=== PATIENT | male | born 1930 | race Caucasian/White ===

== ENCOUNTER 2016-08-27 15:02 | Inpatient (IN) | payer MEDICARE, BC ==
[~2016-08-27] VITALS: Ht 167.6 cm; Wt 59.7 kg
[2016-08-27] MEDS ORDERED: MONT10TA22 PO (15:46)
[2016-08-27] MEDS ORDERED: MAGN400O6 PO (15:46)
[2016-08-27] MEDS ORDERED: QUET25TA PO (15:46)
[2016-08-27] MEDS ORDERED: GUAI120S17 PO (15:46)
[2016-08-27] MEDS ORDERED: FLUT9.9S EA NOSTRIL (15:46)
[2016-08-27] MEDS ORDERED: OLOP5DRO EACHEYE (15:46)
[2016-08-27] MEDS ORDERED: TRAM50TA2 PO (15:46)
[2016-08-27] MEDS ORDERED: HYDR-4077 PO (15:46)
[2016-08-27] MEDS ORDERED: LATA2.5D7 EACHEYE (15:46)
[2016-08-27] MEDS ORDERED: BRIM5DRO EACHEYE (15:46)
[2016-08-27] MEDS ORDERED: POLY17PO4 PO (15:46)
[2016-08-27] MEDS ORDERED: METH5TAB6 PO (15:46)
[2016-08-27] MEDS ORDERED: BACI1CAP PO (15:46)
[2016-08-27] MEDS ORDERED: BENZ-13 PO (15:46)
[2016-08-27] MEDS ORDERED: LOSA25TA13 PO (15:46)
[2016-08-27] MEDS ORDERED: ATOR20TA PO (15:46)
[2016-08-27] MEDS ORDERED: FERR325T28 PO (15:46)
[2016-08-27] MEDS ORDERED: APIX5TAB PO (15:46)
[2016-08-27] MEDS ORDERED: TRIA15CR2 TP (15:46)
[2016-08-27] MEDS ORDERED: FURO-151 PO (15:46)
[2016-08-27] MEDS ORDERED: DOCU-270 PO (15:46)
[2016-08-27] MEDS ORDERED: LIDO30AD10 TD (15:46)
[2016-08-27] MEDS ORDERED: GABA-534 PO ×2 (15:46)
[2016-08-27] MEDS ORDERED: CARB28DR EACHEYE (15:46)
[2016-08-27] MEDS ORDERED: QUET50TA PO (15:46)
[2016-08-27] MEDS ORDERED: FAMO-132 PO (15:46)
[2016-08-27] MEDS ORDERED: ACET-2154 PO (15:46)
[2016-08-27] MEDS ORDERED: MULT-981 PO (15:46)
[2016-08-27] MEDS ORDERED: ALBU8.5H8 INH ×2 (15:46)
[2016-08-27] MEDS ORDERED: OMEG1CAP74 PO (15:46)
[2016-08-27] MEDS ORDERED: AMLO5TAB2 PO (15:46)
[2016-08-27] MEDS ORDERED: METH1TAB29 PO (15:46)
[2016-08-27] MEDS ORDERED: CRAN500C5 PO (15:46)
[2016-08-27] MEDS ORDERED: MELO-105 PO (15:46)
[2016-08-27] MEDS ORDERED: CORTISONE TOP (15:49)
[2016-08-27 15:56] LABS: BASOPHILS # (AUTO) 0.1 K/uL (0.0-8.0); BASOPHILS % (AUTO) 0.7 % (0.0-2.0); EOSINOPHILS # (AUTO) 0.5 K/uL (0.0-0.7); EOSINOPHILS % (AUTO) 6.4 % (0.0-7.0); HEMOGLOBIN 12.6 G/DL (14.0-18.0); LYMPHOCYTES # (AUTO) 1.3 K/UL (0.8-4.8); LYMPHOCYTES % (AUTO) 16.7 % (20.5-51.5); MEAN CORPUSCULAR HEMOGLOBIN 25.8 UUG (27.0-31.0); MEAN CORPUSCULAR HGB CONC 32 g/dL (32.0-37.0); MONOCYTES # (AUTO) 0.9 K/UL (0.1-1.30); MONOCYTES % (AUTO) 11.7 % (0.0-11.0); NEUTROPHILS # (AUTO) 5.1 K/UL (1.8-8.9); NEUTROPHILS % (AUTO) 64.5 % (38.5-71.5); PLATELET COUNT (AUTO) 321 K/UL (150-450); RED BLOOD CELL COUNT(AUTO) 4.87 MIL/UL (4.7-6.1); WHITE BLOOD COUNT (AUTO) 7.9 K/UL (4.0-11.2)
[2016-08-27 16:04] LABS: CARBON DIOXIDE 26 mmol/L (21-32); CHLORIDE 105 mmol/L (98-107); CREATININE 1.2 mg/dL (0.6-1.3); GLUCOSE 102 mg/dL (74-106); POTASSIUM 4.3 mmol/L (3.5-5.1); UREA NITROGEN, BLOOD 26 mg/dL (7-18)
[2016-08-27 16:10] LABS: ALANINE AMINOTRANSFERASE 15 U/L (16-63); ALKALINE PHOSPHATASE 126 U/L (50-136); ASPARTATE AMINOTRANSFERASE 13 U/L (15-37); BILIRUBIN,DIRECT 0.1 mg/dL (0.0-0.2); BILIRUBIN,TOTAL 0.4 mg/dL (0.2-1.0); TOTAL PROTEIN, SERUM 6.8 g/dL (6.4-8.2)
[2016-08-27 16:18] LABS: ETHANOL < 3 MG/DL (0-0)
--- NOTE | 2016-08-27 16:24 | NUR ---
PT IS IN ROOM #2A. DR GORDON EVALUATED THE PT.
[2016-08-27 16:32] LABS: THYROID STIMULATING HORMONE 4.547 mIU/mL (0.358-3.740)
[2016-08-27 17:20] LABS: *BILIRUBIN,URIN NEGATIVE (NEGATIVE); *BLOOD, URINE NEGATIVE (NEGATIVE); *COLOR,URINE YELLOW (YELLOW); *KETONES,URINE NEGATIVE (NEGATIVE); *PROTEIN,URINE NEGATIVE (NEGATIVE); *UROBILINOGEN,URINE 0.2 E.U./dl (NORMAL); LEUKOCYTE ESTERASE ,URINE TRACE (NEGATIVE); NITRITE, URINE NEGATIVE (NEGATIVE); UGLUCOSE NEGATIVE (NEGATIVE)
[2016-08-27 17:28] LABS: *AMPHETAMINE, URINE NEGATIVE (NEGATIVE); *BARBITURATE, URINE NEGATIVE (NEGATIVE); *CANNABINOID, URINE NEGATIVE (NEGATIVE); *COCCAINE, URINE NEGATIVE (NEGATIVE); *OPIATE, URINE NEGATIVE (NEGATIVE); *PHENCYCLIDINE SCREEN,URINE NEGATIVE (NEGATIVE)
[2016-08-27 17:38] LABS: *CLARITY,URINE SLIGHTLY HAZY (CLEAR)
[2016-08-27 17:41] LABS: BACTERIA,URINE MODERATE /HPF (NONE SEEN); MUCUS,URINE FEW /LPF (0-FEW)
[2016-08-27] MEDS ORDERED: diphenhydrAMINE 50 MG/1 ML VIAL IV ONE (18:45)
--- NOTE | 2016-08-27 18:48 | NUR ---
SONG RUIZ EVALUATING THE PT. RELATIVES AT THE BEDSIDE.
--- NOTE | 2016-08-27 19:00 | NUR ---
REPORT WAS GIVEN TO SOLE LEATHER CUTTING MACHINE OPERATORCOMMUNICATIONS SYSTEMS ENGINEER.
--- NOTE | 2016-08-27 19:21 | NUR ---
Received report from YOMAIRA Tate. Assumed care of pt at this time. Pt resting in position of comfort for self. Resp even and unlabored. No obvious signs of distress. Family at bedside, admission pending
[2016-08-27] MEDS ORDERED: diphenhydrAMINE 50 MG/1 ML VIAL ONE (19:32)
[2016-08-27] MEDS ORDERED: MAG HYDROX/AL HYDROX/SIMETH 30 ML LIQUID UDC PO PRN (20:45)
[2016-08-27] MEDS ORDERED: MAGNESIUM HYDROXIDE 30 ML LIQUID UDC PO PRN (20:45)
--- NOTE | 2016-08-27 20:45 | NUR ---
Report called to floor. Preparing to transfer pt to the floor. Family remains at bedside.,
[2016-08-27 21:00] VITALS: BP 129/55
--- NOTE | 2016-08-27 21:00 | NUR ---
Admitted this 86 y/o male patient via gurney, awake alert to himself, no SOB denies chest pain. Vital signs are stable. Dx. Psychosis & Dementia. Initial assessment done, generalized body rash noted. Family in room providing patient's medical history. Per family patient had Scabies a week ago & was treated 3x. Placed on contact isolation w/ 1:1 sitter for patient's safety. Will continue to monitor.
--- NOTE | 2016-08-27 21:45 | NUR ---
Paged Dr. Rocha for admit orders.
[2016-08-27] MEDS ORDERED: BENZONATATE 100 MG CAPSULE PO PRN (22:00)
[2016-08-27] MEDS ORDERED: ALBUTEROL SULFATE 8 GM HFA.AER.AD INH PRN (22:00)
[2016-08-27] MEDS ORDERED: MELOXICAM 7.5 MG TABLET PO PRN (22:00)
[2016-08-27 22:19] LABS: IRON, SERUM 36 ug/dL (50-175)
--- NOTE | 2016-08-28 06:55 | NUR ---
PT IN BED, SLEEPING WELL. RESP IS EVEN AND UNLABORED. NO ACUTE DISTRESS. PT ON 1:1 SITTER. PT REMAINS ON CONTACT ISOLATION FOR POSSIBLE SCABIES.
[2016-08-28] MEDS: AMLODIPINE 5 MG TABLET PO SCH (08:17)
[2016-08-28] MEDS: LOSARTAN POTASSIUM 25 MG TABLET PO SCH (08:17)
[2016-08-28] MEDS: FUROSEMIDE 40 MG TABLET PO SCH (08:17)
[2016-08-28] MEDS ORDERED: ALBUTEROL SULFATE 2.5 MG/3 ML NEBU NEB PRN (08:30)
[2016-08-28] MEDS ORDERED: [UNRECOGNIZED DRUG - OTHER] PO SCH (09:00)
[2016-08-28] MEDS ORDERED: Medication Not On Formulary EA (Omega-3 Fatty Acids/Fish Oil (Fish Oil 1,000 Mg Softgel) PO SCH (09:00)
[2016-08-28] MEDS ORDERED: TRIAMCINOLONE ACET 0.5% CREAM 15 GM TUBE TP SCH (09:00)
[2016-08-28] MEDS ORDERED: BRIMONIDINE-P 0.15% OPHT DROP 5 ML BOTTLE EACHEYE SCH (09:00)
[2016-08-28] MEDS ORDERED: hydrALAZINE HCL 50 MG TABLET PO SCH (09:00)
[2016-08-28] MEDS ORDERED: BACILLUS COAGULANS PO SCH (09:00)
[2016-08-28] MEDS ORDERED: MULTIVITS MINERALS PO SCH (09:00)
[2016-08-28] MEDS ORDERED: [UNRECOGNIZED DRUG - OTHER] PO SCH (09:00)
[2016-08-28] MEDS ORDERED: FAMOTIDINE 20 MG TABLET PO SCH (09:00)
[2016-08-28] MEDS ORDERED: LYCOPENE PO SCH (09:00)
[2016-08-28] MEDS ORDERED: APIXABAN 5 MG TABLET PO ONE (09:00)
[2016-08-28] MEDS ORDERED: INULIN PO SCH (09:00)
[2016-08-28] MEDS: BRIMONIDINE 0.2% OPHT DROP 10 ML BOTTLE EACHEYE SCH ×3 (09:33→18:22)
[2016-08-28] MEDS: MIRALAX 17 GM POWD.PACK PO SCH (09:33)
[2016-08-28] MEDS: MULTIVIT, IRON, MIN NO. 8, FA TABLET PO SCH (09:34)
[2016-08-28] MEDS: FERROUS SULFATE 325 MG TABEC PO SCH (09:34)
[2016-08-28] MEDS: GABAPENTIN 300 MG CAPSULE PO SCH ×3 (09:34→17:53)
[2016-08-28] MEDS: DOCUSATE SODIUM 100 MG CAPSULE PO SCH (09:34)
[2016-08-28] MEDS: Z GUARD REMEDY PASTE 57 GM TUBE TOP SCH ×2 (09:34→21:08)
[2016-08-28] MEDS: LACTOBACILLUS RHAMNOSUS GG 1 EACH CAPSULE PO SCH ×2 (09:34→21:07)
[2016-08-28] MEDS: METHIMAZOLE 5 MG TABLET PO SCH (09:34)
[2016-08-28] MEDS: OMEGA-3 FATTY ACIDS/FISH OIL CAPSULE PO SCH (09:34)
[2016-08-28] MEDS: FAMOTIDINE 20 MG TABLET PO SCH (09:34)
[2016-08-28] MEDS ORDERED: CEPHALEXIN MONOHYDRATE 500 MG CAPSULE PO SCH (10:30)
[2016-08-28] MEDS: CEPHALEXIN MONOHYDRATE 500 MG CAPSULE PO SCH ×2 (11:14→21:06)
[2016-08-28 12:00] VITALS: BP 132/67
--- NOTE | 2016-08-28 12:33 | NUR ---
NEW ORDER OF SKIN SCRAPING, CONTACTED SHAYY. PER TRAY "SHAMIR THE NURSE WILL BE ABLE TO DO IT, CALLED OVER EXTENSION. NO NV IS ABLE TO LEAVE, LEFT A NOTE TO CONTACT THE NURSE IN REGARDS OF THE NEW ORDER FROM PROVIDER OF SKIN SCRAPING".
--- NOTE | 2016-08-28 14:01 | NUR ---
Initial discharge instructions: The patient resides at [facility] , contact: Delisa Palmer . SW will contact Delisa to obtain the address and confirm that they will be accepting the patient back upon DC. DWIGHT spoke with the patient's daughter and son in law Kim and Robe who both stated that they would like for the patient to return to the facility upon DC. DWIGHT will speak with the patient, family, and MD regarding most appropriate discharge plan. SS will form a safe and proper discharge.
[2016-08-28] MEDS: QUETIAPINE FUMARATE 25 MG TABLET PO SCH ×3 (14:28→21:07)
--- NOTE | 2016-08-28 14:36 | NUR ---
WOUND CARE CONSULT: PT PRESENTS WITH ITCHING AND RASH TO BODY WITH SOME DRY ABRASIONS. BLANCHING REDNESS NOTED TO SACRUM. VEL SCORE CURRENTLY 16. ALL SKIN PROTECTION MEASURES IN PLACE AND DISCUSSED WITH NURSING STAFF. DEFER TO MD FOR RASH/SKIN CONDITION. WILL SEE PRN. MD IN AGREEMENT WITH PLAN OF CARE. Addendum: 08/28/16 at 1438 by ALE HAWKINS RN Amended: Links added.
[2016-08-28 15:57] VITALS: BP 147/73
[2016-08-28] MEDS: TRIAMCINOLONE ACET 0.1% CREAM 15 GM TUBE TOP SCH ×2 (17:00→17:59)
[2016-08-28] MEDS: APIXABAN 5 MG TABLET PO SCH (17:53)
[2016-08-28] MEDS: LATANOPROST OPHT DROP 2.5 ML BOTTLE EACHEYE SCH ×2 (17:54→18:23)
--- NOTE | 2016-08-28 19:31 | NUR ---
NO CHANGES NOTED. ALL SAFETY NEEDS ARE MET.
[2016-08-28] MEDS: ACETAMINOPHEN 325 MG TABLET PO PRN (21:07)
[2016-08-28] MEDS: ATORVASTATIN 20 MG TABLET PO SCH (21:07)
[2016-08-28] MEDS: MONTELUKAST SODIUM 10 MG TABLET PO SCH (21:07)
[2016-08-28 22:31] VITALS: BP 140/57
--- NOTE | 2016-08-29 07:00 | NUR ---
No significant change, patient rested well slept 8 hrs. Contact isolation maintained. 1:1 sitter in room.
--- NOTE | 2016-08-29 07:30 | NUR ---
RECEIVED REPORT FROM PUMPING PLANT OPERATOR, PATIENT IN BED SLEEPING, SIDE RAILS UP X2, BED IN LOW POSITION, NO EVIDENCE OF DISTRESS NOTED.
[2016-08-29 08:31] LABS: THYROID STIMULATING HORMONE 5.424 mIU/mL (0.358-3.740)
[2016-08-29] MEDS: BRIMONIDINE 0.2% OPHT DROP 10 ML BOTTLE EACHEYE SCH ×2 (09:37→17:49)
[2016-08-29] MEDS: DOCUSATE SODIUM 100 MG CAPSULE PO SCH (09:38)
[2016-08-29] MEDS: LOSARTAN POTASSIUM 25 MG TABLET PO SCH (09:38)
[2016-08-29] MEDS: FUROSEMIDE 40 MG TABLET PO SCH (09:39)
[2016-08-29] MEDS: OMEGA-3 FATTY ACIDS/FISH OIL CAPSULE PO SCH (09:39)
[2016-08-29] MEDS: FERROUS SULFATE 325 MG TABEC PO SCH (09:39)
[2016-08-29] MEDS: APIXABAN 5 MG TABLET PO SCH ×2 (09:39→17:50)
[2016-08-29] MEDS: MIRALAX 17 GM POWD.PACK PO SCH (09:39)
[2016-08-29] MEDS: CEPHALEXIN MONOHYDRATE 500 MG CAPSULE PO SCH ×2 (09:39→20:28)
[2016-08-29] MEDS: LACTOBACILLUS RHAMNOSUS GG 1 EACH CAPSULE PO SCH ×2 (09:39→20:28)
[2016-08-29] MEDS: GABAPENTIN 300 MG CAPSULE PO SCH ×3 (09:40→17:49)
[2016-08-29] MEDS: AMLODIPINE 5 MG TABLET PO SCH (09:40)
[2016-08-29] MEDS: QUETIAPINE FUMARATE 25 MG TABLET PO SCH ×4 (09:40→20:28)
[2016-08-29] MEDS: MULTIVIT, IRON, MIN NO. 8, FA TABLET PO SCH (09:40)
[2016-08-29] MEDS: TRIAMCINOLONE ACET 0.1% CREAM 15 GM TUBE TOP SCH ×2 (09:40→17:49)
[2016-08-29] MEDS: LIDOCAINE 5% PATCH TD SCH (09:41)
[2016-08-29] MEDS: Z GUARD REMEDY PASTE 57 GM TUBE TOP SCH ×2 (09:41→20:28)
[2016-08-29] MEDS: METHIMAZOLE 5 MG TABLET PO SCH (09:43)
[2016-08-29 10:15] VITALS: BP 131/73
[2016-08-29 12:00] VITALS: BP 131/66
[2016-08-29 16:00] VITALS: BP 128/51
[2016-08-29] MEDS: LATANOPROST OPHT DROP 2.5 ML BOTTLE EACHEYE SCH (17:49)
--- NOTE | 2016-08-29 18:24 | NUR ---
PATIENT HAS BEEN MOSTLY COOPERATIVE THROUGHOUT THE DAY. PATIENT IS BITING TOWELS, NIGHT GOWN, AND BLOOD PRESSURE CUFF. PATIENT WAS VISITED BY FAMILY MEMBERS, AND DID NOT EAT MUCH LUNCH OR DINNER. PATIENT IS IN BED, SIDE RAILS UP X2, AND SITTER AT BEDSIDE. PATIENT IS ON ISOLATION FOR MRSA.
--- NOTE | 2016-08-29 20:00 | NUR ---
RECEIVED PATIENT ASLEEP. SITTER AT BEDSIDE. VSS. BED ALARM ON. ALL NEEDS ATTENDED. WILL CONTINUE TO MONITOR.
[2016-08-29] MEDS: ATORVASTATIN 20 MG TABLET PO SCH (20:28)
[2016-08-29] MEDS: MUPIROCIN 2% OINT 22 GM TUBE NS SCH (20:28)
[2016-08-29] MEDS: MONTELUKAST SODIUM 10 MG TABLET PO SCH (20:28)
--- NOTE | 2016-08-30 06:40 | NUR ---
PATIENT ASLEEP IN BED. SITTER AT BEDSIDE. SLEPT 6 HOURS AND 30 MINUTES. BED ALARM ON. CALL LIGHT IN REACH. ALL NEEDS ATTENDED.WILL CONTINUE TO MONITOR.
--- NOTE | 2016-08-30 07:20 | NUR ---
Received report from night shift supervisor nurse, patient in bed sleeping, no evidence of distress, side rails up x2, bed in low position.
[2016-08-30 07:38] LABS: *OCCULT BLOOD STOOL NEGATIVE (NEGATIVE)
[2016-08-30] MEDS: BRIMONIDINE 0.2% OPHT DROP 10 ML BOTTLE EACHEYE SCH ×2 (09:04→17:48)
[2016-08-30] MEDS: FERROUS SULFATE 325 MG TABEC PO SCH (09:05)
[2016-08-30] MEDS: OMEGA-3 FATTY ACIDS/FISH OIL CAPSULE PO SCH (09:05)
[2016-08-30] MEDS: FUROSEMIDE 40 MG TABLET PO SCH (09:05)
[2016-08-30] MEDS: MULTIVIT, IRON, MIN NO. 8, FA TABLET PO SCH (09:06)
[2016-08-30] MEDS: GABAPENTIN 300 MG CAPSULE PO SCH ×3 (09:06→17:45)
[2016-08-30] MEDS: DOCUSATE SODIUM 100 MG CAPSULE PO SCH (09:06)
[2016-08-30] MEDS: AMLODIPINE 5 MG TABLET PO SCH (09:06)
[2016-08-30] MEDS: CEPHALEXIN MONOHYDRATE 500 MG CAPSULE PO SCH ×2 (09:07→20:52)
[2016-08-30] MEDS: MIRALAX 17 GM POWD.PACK PO SCH (09:07)
[2016-08-30] MEDS: LOSARTAN POTASSIUM 25 MG TABLET PO SCH (09:07)
[2016-08-30] MEDS: QUETIAPINE FUMARATE 25 MG TABLET PO SCH ×4 (09:08→20:52)
[2016-08-30] MEDS: APIXABAN 5 MG TABLET PO SCH ×2 (09:08→17:45)
[2016-08-30] MEDS: FAMOTIDINE 20 MG TABLET PO SCH (09:08)
[2016-08-30] MEDS: MUPIROCIN 2% OINT 22 GM TUBE NS SCH ×2 (09:09→21:33)
[2016-08-30] MEDS: LACTOBACILLUS RHAMNOSUS GG 1 EACH CAPSULE PO SCH ×2 (09:09→20:52)
[2016-08-30] MEDS: LIDOCAINE 5% PATCH TD SCH (09:09)
[2016-08-30] MEDS: METHIMAZOLE 5 MG TABLET PO SCH (09:09)
[2016-08-30] MEDS: Z GUARD REMEDY PASTE 57 GM TUBE TOP SCH ×2 (09:10→20:51)
[2016-08-30] MEDS: TRIAMCINOLONE ACET 0.1% CREAM 15 GM TUBE TOP SCH ×2 (09:10→17:46)
[2016-08-30 15:57] VITALS: BP 119/85
[2016-08-30 15:58] VITALS: BP 133/40
[2016-08-30 16:00] VITALS: BP 133/40
[2016-08-30] MEDS: LATANOPROST OPHT DROP 2.5 ML BOTTLE EACHEYE SCH (17:45)
[2016-08-30 20:00] VITALS: BP 106/41
[2016-08-30] MEDS: ATORVASTATIN 20 MG TABLET PO SCH (20:52)
[2016-08-30] MEDS: MONTELUKAST SODIUM 10 MG TABLET PO SCH (20:52)
--- NOTE | 2016-08-30 22:30 | NUR ---
PT SEEN BY MD LEXY KILGORE WITH NEW ORDER FOR 14 DAY HOLD.
[2016-08-31 04:55] VITALS: BP 125/60
--- NOTE | 2016-08-31 06:45 | NUR ---
PATIENT ASLEEP IN BED PT WITH WITH SITTER. SLEPT WELL. RESP IS EVEN AND UNLABORED. NO ACUTE DISTRESS. BED ALARM ON. ALL NEEDS ATTENDED. WILL CONTINUE TO MONITOR.
[2016-08-31] MEDS: MUPIROCIN 2% OINT 22 GM TUBE NS SCH ×2 (09:00→21:34)
[2016-08-31] MEDS: LIDOCAINE 5% PATCH TD SCH (09:10)
[2016-08-31] MEDS: GABAPENTIN 300 MG CAPSULE PO SCH ×3 (09:11→18:18)
[2016-08-31] MEDS: DOCUSATE SODIUM 100 MG CAPSULE PO SCH (09:11)
[2016-08-31] MEDS: CEPHALEXIN MONOHYDRATE 500 MG CAPSULE PO SCH ×2 (09:11→21:34)
[2016-08-31] MEDS: FERROUS SULFATE 325 MG TABEC PO SCH (09:11)
[2016-08-31] MEDS: FUROSEMIDE 40 MG TABLET PO SCH (09:11)
[2016-08-31] MEDS: METHIMAZOLE 5 MG TABLET PO SCH (09:11)
[2016-08-31] MEDS: APIXABAN 5 MG TABLET PO SCH ×2 (09:11→18:18)
[2016-08-31] MEDS: Z GUARD REMEDY PASTE 57 GM TUBE TOP SCH ×2 (09:12→21:35)
[2016-08-31] MEDS: TRIAMCINOLONE ACET 0.1% CREAM 15 GM TUBE TOP SCH ×2 (09:12→18:18)
[2016-08-31] MEDS: BRIMONIDINE 0.2% OPHT DROP 10 ML BOTTLE EACHEYE SCH ×2 (09:12→17:00)
[2016-08-31] MEDS: OMEGA-3 FATTY ACIDS/FISH OIL CAPSULE PO SCH (09:16)
[2016-08-31] MEDS: MULTIVIT, IRON, MIN NO. 8, FA TABLET PO SCH (09:16)
[2016-08-31] MEDS: LACTOBACILLUS RHAMNOSUS GG 1 EACH CAPSULE PO SCH ×2 (09:16→21:33)
[2016-08-31] MEDS: MIRALAX 17 GM POWD.PACK PO SCH (09:16)
[2016-08-31] MEDS: QUETIAPINE FUMARATE 25 MG TABLET PO SCH ×4 (09:16→21:33)
[2016-08-31] MEDS: LOSARTAN POTASSIUM 25 MG TABLET PO SCH (09:17)
[2016-08-31] MEDS: AMLODIPINE 5 MG TABLET PO SCH (09:18)
--- NOTE | 2016-08-31 10:00 | NUR ---
Infection control reported to me patient was positive for scabies. Reported to JONAS Woo. Given verbal order to start Elimite treatment.
--- NOTE | 2016-08-31 12:27 | NUR ---
PATIENT SCABIES SCRAPING FOUND TO BE POSITIVE. PATIENT TO BE TREATED ELIMITE TREATMENT TODAY AND REPEAT IN 7 DAYS.
[2016-08-31] MEDS ORDERED: PERMETHRIN 5% CREAM 60 GM TUBE TP ONE (12:30)
[2016-08-31 13:10] VITALS: BP 116/54
[2016-08-31 17:01] VITALS: BP 107/44
[2016-08-31] MEDS: LATANOPROST OPHT DROP 2.5 ML BOTTLE EACHEYE SCH (18:18)
--- NOTE | 2016-08-31 20:00 | NUR ---
Received report from AM shift nurse, patient in bed sleeping, in no apparent distress, bed in low position. Per skin scraping, pt is negative for parasites and ova. Pt with sitter. will cont to monitor.
--- NOTE | 2016-08-31 20:00 | NUR ---
RECEIVED PATIENT ASLEEP IN BED. EASILY AROUSABLE. ALERT TO SELF. CONFUSED BUT FOLLOWS DIRECTIONS WELL. SITTER AT BEDSIDE FOR SAFETY. NO S/S OF PAIN OR DISCOMFORT. NO RESP. DISTRESS NOTED. BED ALARM ON. CALL LIGHT IN REACH. ALL NEEDS ATTENDED. WILL CONTINUE TO MONITOR.
[2016-08-31] MEDS: MONTELUKAST SODIUM 10 MG TABLET PO SCH (21:33)
[2016-08-31] MEDS: ATORVASTATIN 20 MG TABLET PO SCH (21:33)
[2016-08-31 21:54] VITALS: BP 98/53
[2016-09-01 05:18] VITALS: BP 118/50
--- NOTE | 2016-09-01 06:25 | NUR ---
PATIENT AWAKE IN BED. PATIENT SLEPT 9 HOURS. NO S/S OF PAIN OR DISCOMFORT. CALL LIGHT IN REACH. ALL NEEDS ATTENDED. WILL CONTINUE TO MONITOR.
[2016-09-01 06:48] LABS: BASOPHILS % (AUTO) 0.5 % (0.0-2.0); EOSINOPHILS # (AUTO) 0.4 K/uL (0.0-0.7); HEMATOCRIT 38.6 % (40-50); HEMOGLOBIN 12.6 G/DL (14.0-18.0); LYMPHOCYTES # (AUTO) 1.1 K/UL (0.8-4.8); LYMPHOCYTES % (AUTO) 14.6 % (20.5-51.5); MEAN CORPUSCULAR HEMOGLOBIN 26.4 UUG (27.0-31.0); MEAN CORPUSCULAR HGB CONC 33 g/dL (32.0-37.0); MEAN CORPUSCULAR VOLUME 80.9 FL (82.0-92.0); MONOCYTES # (AUTO) 0.9 K/UL (0.1-1.30); NEUTROPHILS # (AUTO) 5.4 K/UL (1.8-8.9); NEUTROPHILS % (AUTO) 68.9 % (38.5-71.5); PLATELET COUNT (AUTO) 317 K/UL (150-450); RED BLOOD CELL COUNT(AUTO) 4.77 MIL/UL (4.7-6.1); WHITE BLOOD COUNT (AUTO) 7.8 K/UL (4.0-11.2)
[2016-09-01 07:21] LABS: ALANINE AMINOTRANSFERASE 18 U/L (16-63); ALKALINE PHOSPHATASE 119 U/L (50-136); ASPARTATE AMINOTRANSFERASE 16 U/L (15-37); BILIRUBIN,TOTAL 0.4 mg/dL (0.2-1.0); CARBON DIOXIDE 29 mmol/L (21-32); CHLORIDE 108 mmol/L (98-107); CREATININE 1.4 mg/dL (0.6-1.3); GLUCOSE 107 mg/dL (74-106); MAGNESIUM 2.3 mg/dL (1.8-2.4); PHOSPHOROUS 2.9 mg/dL (2.5-4.9); POTASSIUM 3.8 mmol/L (3.5-5.1); TOTAL PROTEIN, SERUM 6.6 g/dL (6.4-8.2); UREA NITROGEN, BLOOD 22 mg/dL (7-18)
[2016-09-01] MEDS: CEPHALEXIN MONOHYDRATE 500 MG CAPSULE PO SCH ×2 (08:27→20:32)
[2016-09-01] MEDS: DOCUSATE SODIUM 100 MG CAPSULE PO SCH (08:27)
[2016-09-01] MEDS: MULTIVIT, IRON, MIN NO. 8, FA TABLET PO SCH (08:27)
[2016-09-01] MEDS: FUROSEMIDE 40 MG TABLET PO SCH (08:27)
[2016-09-01] MEDS: GABAPENTIN 300 MG CAPSULE PO SCH ×3 (08:27→16:33)
[2016-09-01] MEDS: FERROUS SULFATE 325 MG TABEC PO SCH (08:27)
[2016-09-01] MEDS: OMEGA-3 FATTY ACIDS/FISH OIL CAPSULE PO SCH (08:28)
[2016-09-01] MEDS: QUETIAPINE FUMARATE 25 MG TABLET PO SCH ×3 (08:28→16:33)
[2016-09-01] MEDS: MIRALAX 17 GM POWD.PACK PO SCH (08:28)
[2016-09-01] MEDS: FAMOTIDINE 20 MG TABLET PO SCH (08:28)
[2016-09-01] MEDS: BRIMONIDINE 0.2% OPHT DROP 10 ML BOTTLE EACHEYE SCH ×2 (08:37→16:33)
[2016-09-01] MEDS: TRIAMCINOLONE ACET 0.1% CREAM 15 GM TUBE TOP SCH ×2 (08:40→16:34)
[2016-09-01] MEDS: Z GUARD REMEDY PASTE 57 GM TUBE TOP SCH ×2 (08:40→20:33)
[2016-09-01] MEDS: LIDOCAINE 5% PATCH TD SCH (08:41)
[2016-09-01] MEDS: MUPIROCIN 2% OINT 22 GM TUBE NS SCH ×2 (08:44→20:32)
[2016-09-01] MEDS: LOSARTAN POTASSIUM 25 MG TABLET PO SCH (08:46)
[2016-09-01] MEDS: CARVEDILOL 3.125 MG TABLET PO SCH ×2 (08:47→17:42)
--- NOTE | 2016-09-01 09:54 | NUR ---
PATIENT SEEN AND EXAMINED BY DR GABRIEL WITH NEW ORDERS AND NOTED.
[2016-09-01] MEDS: LACTOBACILLUS RHAMNOSUS GG 1 EACH CAPSULE PO SCH ×2 (10:28→20:32)
[2016-09-01] MEDS: APIXABAN 5 MG TABLET PO SCH ×2 (10:29→16:33)
[2016-09-01 12:00] VITALS: BP 113/76
[2016-09-01 16:06] VITALS: BP 122/56
--- NOTE | 2016-09-01 16:53 | NUR ---
CONTINUE TO BE COMPLIANT WITH MEDICATIONS AND CARE GETS HYPER VOCAL AT TIMES NEEDING REDIRECTION REMAIN ON 5250 WITH A SITTER FOR SAFETY MADE COMFORTABLE WITH NO DISTRESS AT THIS TIME.
[2016-09-01] MEDS: LATANOPROST OPHT DROP 2.5 ML BOTTLE EACHEYE SCH (17:47)
--- NOTE | 2016-09-01 18:00 | NUR ---
RESTING COMFORTABLY WITH NO BEHAVIOR ISSUES AT THIS TIME
[2016-09-01 20:00] VITALS: BP 156/80
[2016-09-01] MEDS: ATORVASTATIN 20 MG TABLET PO SCH (20:32)
[2016-09-01] MEDS: MONTELUKAST SODIUM 10 MG TABLET PO SCH (20:32)
[2016-09-02 04:29] VITALS: BP 129/57
--- NOTE | 2016-09-02 06:25 | NUR ---
PT SLEPT WELL, IN NO ACUTE DISTRESS. PT KEPT CLEAN/DRY, REPOSITIONED Q2H FOR COMFORT. SAFETY MEASURES IN PLACE, BED ALARM ON, 1:1 SITTER PROVIDED. WILL CONTINUE TO MONITOR.
[2016-09-02] MEDS: LORAZEPAM 0.5 MG TABLET PO PRN ×2 (06:50→20:26)
[2016-09-02] MEDS: FERROUS SULFATE 325 MG TABEC PO SCH (08:13)
[2016-09-02] MEDS: OMEGA-3 FATTY ACIDS/FISH OIL CAPSULE PO SCH (08:13)
[2016-09-02] MEDS: MIRALAX 17 GM POWD.PACK PO SCH (08:13)
[2016-09-02] MEDS: LIDOCAINE 5% PATCH TD SCH (08:13)
[2016-09-02] MEDS: DOCUSATE SODIUM 100 MG CAPSULE PO SCH (08:13)
[2016-09-02] MEDS: GABAPENTIN 300 MG CAPSULE PO SCH ×3 (08:14→17:12)
[2016-09-02] MEDS: CEPHALEXIN MONOHYDRATE 500 MG CAPSULE PO SCH (08:14)
[2016-09-02] MEDS: LACTOBACILLUS RHAMNOSUS GG 1 EACH CAPSULE PO SCH ×2 (08:14→20:26)
[2016-09-02] MEDS: QUETIAPINE FUMARATE 25 MG TABLET PO SCH ×3 (08:14→17:12)
[2016-09-02] MEDS: MULTIVIT, IRON, MIN NO. 8, FA TABLET PO SCH (08:14)
[2016-09-02] MEDS: FUROSEMIDE 40 MG TABLET PO SCH (08:14)
[2016-09-02] MEDS: CARVEDILOL 3.125 MG TABLET PO SCH ×2 (08:15→17:12)
[2016-09-02] MEDS: Z GUARD REMEDY PASTE 57 GM TUBE TOP SCH ×2 (08:15→20:28)
[2016-09-02] MEDS: LOSARTAN POTASSIUM 25 MG TABLET PO SCH (08:15)
[2016-09-02] MEDS: TRIAMCINOLONE ACET 0.1% CREAM 15 GM TUBE TOP SCH ×2 (08:25→17:14)
[2016-09-02] MEDS: BRIMONIDINE 0.2% OPHT DROP 10 ML BOTTLE EACHEYE SCH ×2 (08:25→17:13)
[2016-09-02] MEDS: MUPIROCIN 2% OINT 22 GM TUBE NS SCH ×2 (08:25→20:28)
[2016-09-02] MEDS: APIXABAN 5 MG TABLET PO SCH ×2 (08:29→17:30)
[2016-09-02 12:39] VITALS: BP 126/54
[2016-09-02 16:20] VITALS: BP 135/60
[2016-09-02] MEDS: LATANOPROST OPHT DROP 2.5 ML BOTTLE EACHEYE SCH (17:12)
[2016-09-02 20:00] VITALS: BP 119/49
[2016-09-02] MEDS: ATORVASTATIN 20 MG TABLET PO SCH (20:26)
[2016-09-02] MEDS: MONTELUKAST SODIUM 10 MG TABLET PO SCH (20:27)
[2016-09-02] MEDS: ZOLPIDEM 5 MG TABLET PO PRN (23:44)
--- NOTE | 2016-09-03 06:00 | NUR ---
PT SLEPT INTERMITTENTLY. PT IS ALERT, NO ACUTE DISTRESS. PT KEPT CLEAN/DRY. ENCOURAGED FLUIDS, OFFERED SNACKS. ALL MEDS DUE GIVEN ORDERED. SAFETY MEASURES IN PLACE, BED ALARM ON, 1:1 SITTER PROVIDED. WILL CONTINUE TO MONITOR.
[2016-09-03 08:00] VITALS: BP 126/90
[2016-09-03] MEDS: Z GUARD REMEDY PASTE 57 GM TUBE TOP SCH ×2 (08:00→20:23)
[2016-09-03] MEDS: MUPIROCIN 2% OINT 22 GM TUBE NS SCH ×2 (08:00→20:23)
[2016-09-03] MEDS: TRIAMCINOLONE ACET 0.1% CREAM 15 GM TUBE TOP SCH ×2 (08:00→17:26)
[2016-09-03] MEDS: LIDOCAINE 5% PATCH TD SCH (08:01)
[2016-09-03] MEDS: BRIMONIDINE 0.2% OPHT DROP 10 ML BOTTLE EACHEYE SCH ×2 (08:01→17:26)
[2016-09-03] MEDS: MIRALAX 17 GM POWD.PACK PO SCH (08:01)
[2016-09-03] MEDS: FERROUS SULFATE 325 MG TABEC PO SCH (08:02)
[2016-09-03] MEDS: QUETIAPINE FUMARATE 25 MG TABLET PO SCH ×3 (08:02→17:00)
[2016-09-03] MEDS: MULTIVIT, IRON, MIN NO. 8, FA TABLET PO SCH (08:02)
[2016-09-03] MEDS: OMEGA-3 FATTY ACIDS/FISH OIL CAPSULE PO SCH (08:02)
[2016-09-03] MEDS: CARVEDILOL 3.125 MG TABLET PO SCH ×2 (08:02→17:24)
[2016-09-03] MEDS: GABAPENTIN 300 MG CAPSULE PO SCH ×3 (08:02→17:23)
[2016-09-03] MEDS: LOSARTAN POTASSIUM 25 MG TABLET PO SCH (08:02)
[2016-09-03] MEDS: FUROSEMIDE 40 MG TABLET PO SCH (08:02)
[2016-09-03] MEDS: LACTOBACILLUS RHAMNOSUS GG 1 EACH CAPSULE PO SCH ×2 (08:02→20:22)
[2016-09-03] MEDS: DOCUSATE SODIUM 100 MG CAPSULE PO SCH (08:02)
[2016-09-03] MEDS: FAMOTIDINE 20 MG TABLET PO SCH (08:02)
[2016-09-03] MEDS: APIXABAN 5 MG TABLET PO SCH ×2 (09:15→17:23)
[2016-09-03 15:25] VITALS: BP 96/50
[2016-09-03] MEDS: LATANOPROST OPHT DROP 2.5 ML BOTTLE EACHEYE SCH (17:26)
[2016-09-03] MEDS: LORAZEPAM 0.5 MG TABLET PO PRN (18:23)
[2016-09-03 20:00] VITALS: BP 125/54
[2016-09-03] MEDS: MONTELUKAST SODIUM 10 MG TABLET PO SCH (20:22)
[2016-09-03] MEDS: ATORVASTATIN 20 MG TABLET PO SCH (20:22)
[2016-09-03] MEDS: ZOLPIDEM 5 MG TABLET PO PRN (22:53)
[2016-09-04] MEDS: ACETAMINOPHEN 325 MG TABLET PO PRN ×2 (02:26→19:11)
--- NOTE | 2016-09-04 05:56 | NUR ---
PT SLEPT INTERMITTENTLY. NO SIGNIFICANT CHANGE OF CONDITION, NO ACUTE DISTRESS. SAFETY MEASURES IN PLACE, BED ALARM ON, 1:1 SITTER PROVIDED. WILL CONTINUE TO MONITOR.
[2016-09-04 06:36] LABS: BASOPHILS % (AUTO) 0.6 % (0.0-2.0); EOSINOPHILS # (AUTO) 0.5 K/uL (0.0-0.7); EOSINOPHILS % (AUTO) 6.4 % (0.0-7.0); HEMATOCRIT 36.8 % (40-50); HEMOGLOBIN 12.2 G/DL (14.0-18.0); LYMPHOCYTES # (AUTO) 1.3 K/UL (0.8-4.8); LYMPHOCYTES % (AUTO) 16.9 % (20.5-51.5); MEAN CORPUSCULAR HEMOGLOBIN 26.6 UUG (27.0-31.0); MEAN CORPUSCULAR HGB CONC 33 g/dL (32.0-37.0); MEAN CORPUSCULAR VOLUME 80.2 FL (82.0-92.0); MONOCYTES # (AUTO) 0.9 K/UL (0.1-1.30); MONOCYTES % (AUTO) 11.5 % (0.0-11.0); NEUTROPHILS % (AUTO) 64.6 % (38.5-71.5); PLATELET COUNT (AUTO) 324 K/UL (150-450); RED BLOOD CELL COUNT(AUTO) 4.58 MIL/UL (4.7-6.1); WHITE BLOOD COUNT (AUTO) 7.7 K/UL (4.0-11.2)
[2016-09-04 06:43] LABS: CARBON DIOXIDE 29 mmol/L (21-32); CHLORIDE 107 mmol/L (98-107); CREATININE 1.3 mg/dL (0.6-1.3); GLUCOSE 128 mg/dL (74-106); POTASSIUM 3.9 mmol/L (3.5-5.1); UREA NITROGEN, BLOOD 24 mg/dL (7-18)
[2016-09-04] MEDS: FERROUS SULFATE 325 MG TABEC PO SCH (07:59)
[2016-09-04] MEDS: LOSARTAN POTASSIUM 25 MG TABLET PO SCH (07:59)
[2016-09-04] MEDS: FUROSEMIDE 40 MG TABLET PO SCH (07:59)
[2016-09-04] MEDS: DOCUSATE SODIUM 100 MG CAPSULE PO SCH (07:59)
[2016-09-04] MEDS: LACTOBACILLUS RHAMNOSUS GG 1 EACH CAPSULE PO SCH ×2 (07:59→20:12)
[2016-09-04] MEDS: GABAPENTIN 300 MG CAPSULE PO SCH ×3 (07:59→17:54)
[2016-09-04] MEDS: APIXABAN 5 MG TABLET PO SCH ×2 (08:00→17:54)
[2016-09-04] MEDS: CARVEDILOL 3.125 MG TABLET PO SCH (08:00)
[2016-09-04 08:02] VITALS: BP 125/63
[2016-09-04] MEDS: OMEGA-3 FATTY ACIDS/FISH OIL CAPSULE PO SCH (08:05)
[2016-09-04] MEDS: MIRALAX 17 GM POWD.PACK PO SCH (08:05)
[2016-09-04] MEDS: QUETIAPINE FUMARATE 25 MG TABLET PO SCH ×5 (08:05→21:57)
[2016-09-04] MEDS: LIDOCAINE 5% PATCH TD SCH (08:06)
[2016-09-04] MEDS: MULTIVIT, IRON, MIN NO. 8, FA TABLET PO SCH (08:07)
[2016-09-04] MEDS: MUPIROCIN 2% OINT 22 GM TUBE NS SCH ×2 (08:15→21:53)
[2016-09-04] MEDS: TRIAMCINOLONE ACET 0.1% CREAM 15 GM TUBE TOP SCH ×2 (08:15→17:34)
[2016-09-04] MEDS: BRIMONIDINE 0.2% OPHT DROP 10 ML BOTTLE EACHEYE SCH ×2 (08:15→17:34)
[2016-09-04] MEDS: Z GUARD REMEDY PASTE 57 GM TUBE TOP SCH ×2 (08:15→21:54)
[2016-09-04 12:47] VITALS: BP 99/50
[2016-09-04] MEDS: LATANOPROST OPHT DROP 2.5 ML BOTTLE EACHEYE SCH (17:57)
--- NOTE | 2016-09-04 19:00 | NUR ---
RECEIVED PATIENT IN BED, AGITATED, HIT AND KICKS STAFF WHEN TRIES TO CLEAN HIM, TRIES TO CLIMB OOB, RESSIST CARE, REDIRECT PATIENT BUT NOT EFFECTIVE, PATIENT CURSING STAFF, ALSO REMOVES CLOTHING AND LINEN. CONT ON 1;1 SITTER FOR SAFETY. CONT TO MONITOR.
[2016-09-04] MEDS: LORAZEPAM 0.5 MG TABLET PO PRN (19:11)
[2016-09-04 20:00] VITALS: BP 85/53
[2016-09-04] MEDS: MONTELUKAST SODIUM 10 MG TABLET PO SCH (20:12)
[2016-09-04] MEDS: ATORVASTATIN 20 MG TABLET PO SCH (21:53)
[2016-09-04] MEDS: ZOLPIDEM 5 MG TABLET PO PRN (21:55)
--- NOTE | 2016-09-04 21:55 | NUR ---
ASSESSED FOR PAIN AND DISCOMFORT, KEPT CLEAN DRY AND COMFORTABLE, OFFER BATHROOM FOR BLADDER AND BOWEL MOVEMENT, OFFERED FOOD, WARM MILK, BUT REFUSED. CONT TO OFFER.
--- NOTE | 2016-09-04 21:59 | NUR ---
PATIENT VERY AGITATED, SEROQUEL DOSE WAS HELD BY AM NURSE DUE TO LOW BLOOD PRESSURES, GIVEN SEROQUEL 50MG NOW DUE TO SEVERE AGITATION, PUNCH, AND KICK STAFF, RESIST CARE, BP 121/53. AWAKE VERBALLY RESPONSIVE.
[2016-09-04 23:00] VITALS: BP 121/53
[2016-09-05 05:24] VITALS: BP 102/55
--- NOTE | 2016-09-05 05:40 | NUR ---
PATIENT SLEEP ON AND OFF, SLEPT FOR 3 1/2 HRS ONLY, NO S/S OF PAIN NOR DISCOMFORT, CONT 1;1 SITTER FOR SAFETY, PATIENT HAD TWO BOWEL MOVEMENT, GIVEN SNACK BY SITTER, OFFER FLUIDS, AGITATION SUBSIDED AT THIS TIME, KEPT CLEAN AND DRY.
[2016-09-05] MEDS: FERROUS SULFATE 325 MG TABEC PO SCH (09:01)
[2016-09-05] MEDS: QUETIAPINE FUMARATE 25 MG TABLET PO SCH ×3 (09:02→17:11)
[2016-09-05] MEDS: OMEGA-3 FATTY ACIDS/FISH OIL CAPSULE PO SCH (09:02)
[2016-09-05] MEDS: FUROSEMIDE 40 MG TABLET PO SCH (09:02)
[2016-09-05] MEDS: GABAPENTIN 300 MG CAPSULE PO SCH ×3 (09:03→17:11)
[2016-09-05] MEDS: MULTIVIT, IRON, MIN NO. 8, FA TABLET PO SCH (09:03)
[2016-09-05] MEDS: FAMOTIDINE 20 MG TABLET PO SCH (09:03)
[2016-09-05] MEDS: DOCUSATE SODIUM 100 MG CAPSULE PO SCH (09:04)
[2016-09-05] MEDS: LACTOBACILLUS RHAMNOSUS GG 1 EACH CAPSULE PO SCH ×2 (09:04→20:18)
[2016-09-05] MEDS: MIRALAX 17 GM POWD.PACK PO SCH (09:08)
[2016-09-05] MEDS: LIDOCAINE 5% PATCH TD SCH (09:08)
[2016-09-05 09:10] VITALS: BP 158/81
[2016-09-05] MEDS: LOSARTAN POTASSIUM 25 MG TABLET PO SCH (09:13)
[2016-09-05] MEDS: APIXABAN 5 MG TABLET PO SCH ×2 (09:21→17:12)
[2016-09-05] MEDS: BRIMONIDINE 0.2% OPHT DROP 10 ML BOTTLE EACHEYE SCH ×2 (09:21→17:11)
[2016-09-05] MEDS: TRIAMCINOLONE ACET 0.1% CREAM 15 GM TUBE TOP SCH ×2 (09:21→17:11)
[2016-09-05] MEDS: MUPIROCIN 2% OINT 22 GM TUBE NS SCH (09:21)
[2016-09-05] MEDS: Z GUARD REMEDY PASTE 57 GM TUBE TOP SCH ×2 (09:22→21:09)
--- NOTE | 2016-09-05 13:43 | NUR ---
Patient noted to be drowsy and lethargic. Difficult to arouse therefore afternoon meds held at this time. Do not want to over sedate patient even further. Vitals stable. Sitter at bedside for safety.
[2016-09-05 14:45] VITALS: BP 114/61
[2016-09-05] MEDS: LATANOPROST OPHT DROP 2.5 ML BOTTLE EACHEYE SCH (17:20)
[2016-09-05 19:53] VITALS: BP 104/67
[2016-09-05] MEDS: MONTELUKAST SODIUM 10 MG TABLET PO SCH (20:18)
[2016-09-05] MEDS: ATORVASTATIN 20 MG TABLET PO SCH (20:18)
[2016-09-05] MEDS: ACETAMINOPHEN 325 MG TABLET PO PRN (20:21)
[2016-09-05] MEDS: ZOLPIDEM 5 MG TABLET PO PRN (21:08)
--- NOTE | 2016-09-05 21:08 | NUR ---
PATIENT NOTED TURNING AND TOSSING IN BED, RESTLESSNESS NOTED IN BED UNABLE TO SLEEP, GIVEN SLEEPING PILL AND TYLENOL FOR SLEEP AND FOR COMFORT, AWAITING FOR RESPONSE. KEPT CLEAN DRY AND COMFORTABLE, CONT TO MONITOR.
[2016-09-05] MEDS: LORAZEPAM 0.5 MG TABLET PO PRN (23:52)
--- NOTE | 2016-09-05 23:52 | NUR ---
PATIENT STILL UNABLE TO SLEEP, PATIENT COVERED WITH SHEETS BUT BODY AND LEGS STILL MOVING CONSTANTLY, WHEN ASKED IF HE HAS PAIN HE SAID "YES" BUT UNABLE TO TELL WHERE IS THE PAIN, PATIENT ALSO AGITATED CURSES AND HITS STAFF. GIVEN PAIN MEDICATIONS AND ATIVAN FOR AGITATION, CONT TO MONITOR.
[2016-09-05] MEDS: TRAMADOL HCL 50 MG TABLET PO PRN (23:53)
[2016-09-06 04:55] VITALS: BP 117/60
--- NOTE | 2016-09-06 06:55 | NUR ---
PATIENT SLEEP ON AND OFF, PATIENT SLEPT FOR 2 HOURS, PATIENT SLEEP FOR 30 MINUTES THEN WAKES UP ALL NIGHTS, KEPT CLEAN AND DRY, CONT ON 1;1 SITTER FOR SAFETY, CONT TO CONTACT ISOLATION. RASHES SUBSIDING AT THIS TIME, KEPT SKIN CLEAN. NO S/S OF DISTRESS.
[2016-09-06 08:00] VITALS: BP 125/54
--- NOTE | 2016-09-06 08:00 | NUR ---
awake alert, on still refusing to have blood draw, IVF and vs taken- gets agitated when convinced, sitter at bedside, safety measure maintained, explained plan of care but refused to listen at this time Addendum: 09/06/16 at 1146 by PEPE HEREDIA RN wrong pt
--- NOTE | 2016-09-06 08:00 | NUR ---
awake alert, oriented to self, calm and cooperative, follows commands, took breakfast, sitter at bedside
[2016-09-06] MEDS: FERROUS SULFATE 325 MG TABEC PO SCH (08:14)
[2016-09-06] MEDS: GABAPENTIN 300 MG CAPSULE PO SCH ×3 (08:15→17:33)
[2016-09-06] MEDS: DOCUSATE SODIUM 100 MG CAPSULE PO SCH (08:15)
[2016-09-06] MEDS: FUROSEMIDE 40 MG TABLET PO SCH (08:15)
[2016-09-06] MEDS: MULTIVIT, IRON, MIN NO. 8, FA TABLET PO SCH (08:15)
[2016-09-06] MEDS: OMEGA-3 FATTY ACIDS/FISH OIL CAPSULE PO SCH (08:15)
[2016-09-06] MEDS: QUETIAPINE FUMARATE 25 MG TABLET PO SCH ×3 (08:15→17:33)
[2016-09-06] MEDS: LACTOBACILLUS RHAMNOSUS GG 1 EACH CAPSULE PO SCH ×2 (08:15→19:50)
[2016-09-06] MEDS: LOSARTAN POTASSIUM 25 MG TABLET PO SCH (08:15)
--- NOTE | 2016-09-06 08:15 | NUR ---
behavior change noted- agreed to have vs taken and breakfast, took his meds, joking and laughing with staff. IV abx given Addendum: 09/06/16 at 1150 by PEPE HEREDIA RN wrong pt
[2016-09-06] MEDS: MIRALAX 17 GM POWD.PACK PO SCH (08:16)
[2016-09-06] MEDS: LIDOCAINE 5% PATCH TD SCH (08:16)
[2016-09-06] MEDS: Z GUARD REMEDY PASTE 57 GM TUBE TOP SCH ×2 (08:17→19:49)
[2016-09-06] MEDS: TRIAMCINOLONE ACET 0.1% CREAM 15 GM TUBE TOP SCH ×2 (08:18→17:34)
[2016-09-06] MEDS: BRIMONIDINE 0.2% OPHT DROP 10 ML BOTTLE EACHEYE SCH ×2 (08:19→17:34)
[2016-09-06] MEDS: APIXABAN 5 MG TABLET PO SCH ×2 (08:26→17:33)
--- NOTE | 2016-09-06 09:00 | NUR ---
compliant with care and medications, on and off biting his blanket but calm
[2016-09-06 09:38] LABS: BASOPHILS # (AUTO) 0.1 K/uL (0.0-8.0); BASOPHILS % (AUTO) 0.6 % (0.0-2.0); EOSINOPHILS # (AUTO) 0.4 K/uL (0.0-0.7); EOSINOPHILS % (AUTO) 5.1 % (0.0-7.0); HEMATOCRIT 40.2 % (40-50); HEMOGLOBIN 13.2 G/DL (14.0-18.0); LYMPHOCYTES # (AUTO) 1.2 K/UL (0.8-4.8); MEAN CORPUSCULAR HEMOGLOBIN 26.4 UUG (27.0-31.0); MEAN CORPUSCULAR HGB CONC 33 g/dL (32.0-37.0); MEAN CORPUSCULAR VOLUME 80.2 FL (82.0-92.0); MONOCYTES # (AUTO) 0.8 K/UL (0.1-1.30); MONOCYTES % (AUTO) 9.9 % (0.0-11.0); NEUTROPHILS # (AUTO) 6.1 K/UL (1.8-8.9); NEUTROPHILS % (AUTO) 70.4 % (38.5-71.5); PLATELET COUNT (AUTO) 368 K/UL (150-450); RED BLOOD CELL COUNT(AUTO) 5.01 MIL/UL (4.7-6.1); WHITE BLOOD COUNT (AUTO) 8.6 K/UL (4.0-11.2)
[2016-09-06 09:42] LABS: CARBON DIOXIDE 27 mmol/L (21-32); CHLORIDE 106 mmol/L (98-107); CREATININE 1.2 mg/dL (0.6-1.3); GLUCOSE 134 mg/dL (74-106); POTASSIUM 3.8 mmol/L (3.5-5.1); UREA NITROGEN, BLOOD 25 mg/dL (7-18)
--- NOTE | 2016-09-06 11:40 | NUR ---
calm and resting in bed, no distress noted, sitter at bedside
--- NOTE | 2016-09-06 12:00 | NUR ---
seen by Dr Brown
[2016-09-06 12:44] VITALS: BP 137/65
[2016-09-06 15:11] VITALS: BP 99/61
[2016-09-06 17:01] VITALS: BP 135/79
[2016-09-06] MEDS: LATANOPROST OPHT DROP 2.5 ML BOTTLE EACHEYE SCH (17:34)
--- NOTE | 2016-09-06 18:46 | NUR ---
resting in bed, calm and cooperative this shift, all needs attended and met, sitter in the room
[2016-09-06] MEDS: ATORVASTATIN 20 MG TABLET PO SCH (19:50)
[2016-09-06] MEDS: MONTELUKAST SODIUM 10 MG TABLET PO SCH (19:50)
--- NOTE | 2016-09-06 21:35 | NUR ---
Patient to be discharged. Report given to Gloria in [facility]. Patient transferred via bed. Patient sent with belongings including denture. IV removed. Patient son notified of transfer. Agrees. TMS with orders given.
--- NOTE | 2016-09-06 23:30 | NUR ---
Pt received laying in bed, no acute distress noted. Pt observed to be confused/disoriented. Observed to be restless in bed, biting robe string, although pt is quiet. 1:1 sitter at bedside. Remains on isolation of the [facility]AR[facility] for MRSA.
[2016-09-07 04:30] VITALS: BP 149/86
--- NOTE | 2016-09-07 05:57 | NUR ---
Pt slept one hour through out the night. Pt restless at times but quiet. 1:1 sitter at all times. No acute distress noted. Safety measures maintained.
[2016-09-07 08:00] VITALS: BP 136/73
[2016-09-07] MEDS: LORAZEPAM 0.5 MG TABLET PO PRN (08:03)
[2016-09-07] MEDS: TRAMADOL HCL 50 MG TABLET PO PRN (08:03)
[2016-09-07] MEDS: FUROSEMIDE 40 MG TABLET PO SCH (08:13)
[2016-09-07] MEDS: GABAPENTIN 300 MG CAPSULE PO SCH ×2 (08:13→13:00)
[2016-09-07] MEDS: LACTOBACILLUS RHAMNOSUS GG 1 EACH CAPSULE PO SCH (08:13)
[2016-09-07] MEDS: MULTIVIT, IRON, MIN NO. 8, FA TABLET PO SCH (08:13)
[2016-09-07] MEDS: FERROUS SULFATE 325 MG TABEC PO SCH (08:13)
[2016-09-07] MEDS: DOCUSATE SODIUM 100 MG CAPSULE PO SCH (08:14)
[2016-09-07] MEDS: OMEGA-3 FATTY ACIDS/FISH OIL CAPSULE PO SCH (08:14)
[2016-09-07] MEDS: LOSARTAN POTASSIUM 25 MG TABLET PO SCH (08:14)
[2016-09-07] MEDS: QUETIAPINE FUMARATE 25 MG TABLET PO SCH ×2 (08:14→13:00)
[2016-09-07] MEDS: APIXABAN 5 MG TABLET PO SCH (08:17)
[2016-09-07] MEDS: LIDOCAINE 5% PATCH TD SCH (08:18)
[2016-09-07] MEDS: FAMOTIDINE 20 MG TABLET PO SCH (08:18)
[2016-09-07] MEDS: TRIAMCINOLONE ACET 0.1% CREAM 15 GM TUBE TOP SCH (08:18)
[2016-09-07] MEDS: Z GUARD REMEDY PASTE 57 GM TUBE TOP SCH (08:18)
[2016-09-07] MEDS: MIRALAX 17 GM POWD.PACK PO SCH (08:20)
[2016-09-07] MEDS: BRIMONIDINE 0.2% OPHT DROP 10 ML BOTTLE EACHEYE SCH (08:30)
--- NOTE | 2016-09-07 10:47 | NUR ---
DC Note: The patient will be discharged today back to [facility] [[address] [place] [address]] via ambulance. DWIGHT spoke with the linux systems administrator, Jordyn and she stated that they will be accepting the patient back today. Per Jordyn's request, the patient prescriptions must be faxed to fax: . Jordyn stated that they would like for the patient to arrive between 1:00-2:00 pm today. DWIGHT spoke with the patient's daughter, Kim Salinas and she is aware and agreeable with the discharge plan. The patient will follow-up with her psychiatrist Dr. Lesly Qiu and her naphthalene operator Dr. Rosario Yoder .
[2016-09-07 11:37] VITALS: BP 108/50
--- NOTE | 2016-09-07 14:40 | NUR ---
V/S STABLE. PT. SLEEPING OFF AND ON. CALM AND COOPERATIVE AT THIS TIME. ALL BELONGINGS PACKED FOR PT. AMBULANCE HERE TO TRANSPORT TO COUNTS INCLUDE 234 BEDS AT THE [facility]
== END 2016-09-07 14:40 | DRG 884 ==
LOC: ER 15:03 → GPSOV 20:23
PROVIDERS: ADMIT Psychiatry & Neurology Psychiatry; ATTEND Psychiatry & Neurology Psychiatry
DX: F06.8 Other specified mental disorders due to known physiological condition (principal); I50.23 Acute on chronic systolic (congestive) heart failure; N39.0 Urinary tract infection, site not specified; J90 Pleural effusion, not elsewhere classified; B86 Scabies; D50.9 Iron deficiency anemia, unspecified; E03.9 Hypothyroidism, unspecified; E05.90 Thyrotoxicosis, unspecified without thyrotoxic crisis or storm; E11.9 Type 2 diabetes mellitus without complications; E78.5 Hyperlipidemia, unspecified; F32.9 Major depressive disorder, single episode, unspecified; F41.9 Anxiety disorder, unspecified; H40.9 Unspecified glaucoma; I25.10 Atherosclerotic heart disease of native coronary artery without angina pectoris; I25.5 Ischemic cardiomyopathy; I35.0 Nonrheumatic aortic (valve) stenosis; I48.0 Paroxysmal atrial fibrillation; K59.00 Constipation, unspecified; M19.90 Unspecified osteoarthritis, unspecified site; Z79.01 Long term (current) use of anticoagulants; Z79.899 Other long term (current) drug therapy; Z85.46 Personal history of malignant neoplasm of prostate; Z86.73 Personal history of transient ischemic attack (TIA), and cerebral infarction without residual deficits; Z95.0 Presence of cardiac pacemaker; Z87.440 Personal history of urinary (tract) infections; Z95.1 Presence of aortocoronary bypass graft; Z22.322 Carrier or suspected carrier of Methicillin resistant Staphylococcus aureus
CPT/HCPCS: 36415; 71010; 80307; 83550; 83735; 84100; 84443; 85025; 85730; 87086; 93005; 93307; 97116; 97161; 97530; A4663; G0480; J1200